=== PATIENT | female | born 1965 | race Two or more races ===

== ENCOUNTER 2021-09-15 01:48 | Emergency (ER) | payer MEDICAID, SELFPAY ==
[2021-09-15 02:00] VITALS: BP 114/84; PULSE 80; O2SAT 100
[2021-09-15 02:03] VITALS: BP 129/64; PULSE 98; RESP 24; TEMP 36.5; O2SAT 94; BMI 30.7
== END 2021-09-15 05:42 | disposition left against medical advice (07) ==
PROVIDERS: Emergency Provider Emergency Medicine
DX: R06.02 Shortness of breath (principal)
CPT/HCPCS: 99281

== ENCOUNTER 2023-04-21 10:07 | Outpatient (AMB) | payer MEDICAID, SELFPAY ==
[2023-04-21 10:23] VITALS: BP 135/75; PULSE 84; BMI 29.6
--- NOTE | 2023-04-21 10:23 | MHC.OFFVIS ---
Intake Vital Signs 04/21/23 10:23 Height 5 ft 2 in Weight 162 lb BMI 29.6 BP 135/75 Blood Pressure Location Rt brachial Position Sitting Pulse 84 Intake Visit Reasons: Umbilical hernia Intake Note: Patient referred by PCP Dr. Maurizio Aragon for umbilical hernia. Present since 3yrs. 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 Because of progression of symptoms, she presents here and wishes to have it repaired. She otherwise tolerates a diet, has regular bowel habits. No other GI issues or complaints. No prior abdominal surgeries. Chart was reviewed and patient evaluated [facility] Medical History Depression CKD (chronic kidney disease), stage III Atrophy of right kidney History of hepatitis C Ascending aorta dilation Aortic regurgitation History of latent tuberculosis Opioid use disorder Postmenopausal Nicotine dependence, cigarettes, uncomplicated Social History (Updated 04/21/23 @ 10:26 by SHONDA Chaudhary) Patient Tobacco Use Status: Current someday Tobacco user Cigarettes Per Day: 7 Physical Exam Vital Signs: Last Vital Signs Pulse 84 04/21/23 10:23 BP 135/75 04/21/23 10:23 BMI result Body Mass Index 29.6 Chest Other: Chest breath sounds bilaterally, HS 1 in 2 GI Other: Patient was examined both supine and standing with Valsalva. Moderately corpulent abdomen. Bilateral groin exam negative. Umbilicus exam negative. Patient has a proximally 2-3 cm incarcerated /irreducible supraumbilical ventral hernia. Abdomen otherwise benign Assessment & Plan Assessment & Plan (1) Incarcerated ventral hernia: Code(s): K43.6 - Other and unspecified ventral hernia with obstruction, without gangrene Plan Risks, benefits, alternatives of open repair of incarcerated supraumbilical ventral hernia with possible mesh reviewed with the patient and included but not limited to bleeding, infection, recurrence, numbness, pain, scarring, bowel injury and the patient wishes to proceed. All questions answered. Arrangements were made for this. Coding Level of Care Code New Pt Level 5 (78979) Diagnoses Incarcerated ventral hernia K43.6
== END 2023-04-21 10:38 | disposition home or self-care (01) ==
PROVIDERS: PCP Student in an Organized Health Care Education/Training Program; Referring Provider Student in an Organized Health Care Education/Training Program; Visit Provider Surgery
DX: K43.6 Other and unspecified ventral hernia with obstruction, without gangrene (principal)
CPT/HCPCS: 99204

== ENCOUNTER → 2023-04-21 10:07 | Outpatient (BNVA) | payer MEDICAID, SELFPAY | PROVIDERS: PCP Student in an Organized Health Care Education/Training Program; Referring Provider Student in an Organized Health Care Education/Training Program; Visit Provider Surgery | DX: K43.6 Other and unspecified ventral hernia with obstruction, without gangrene (principal) | CPT/HCPCS: 99202 ==

== ENCOUNTER 2023-05-22 05:57 | Day surgery (SDC) | payer MEDICAID, SELFPAY ==
[2023-05-20 13:35] VITALS: BMI 29.6
--- NOTE | 2023-05-21 14:38 | MHC.SHP ---
Pre-Procedural Eval Section A - 24 Hr Update-Section A only Date of Service: 05/21/23 The patient is an INPATIENT: No Changes since office visit: No Cold of Flu in the past 2 weeks, No New Medical Problems, No Changes in Medication and No Patient answered all questions Section B - Complete if H&P > 30 days Chief Complaint: Other and unspecified ventral hernia Allergies: Allergies Allergy/AdvReac Type Severity Reaction Status Date / Time No Known Allergies Allergy Unverified 04/21/23 10:26 Plan I have reviewed the history and physical and performed a pertinent physical examination on my patient. No changes have occurred unless specified. Time Spent With Patient Time: Total time managing care of this patient today ____ minutes.
[2023-05-22 06:10] VITALS: BMI 30.4
[2023-05-22 06:17] VITALS: BP 134/77; PULSE 75; RESP 16; TEMP 36.4; O2SAT 96
[2023-05-22 06:28] LABS: Hematocrit 37.3 % (37.0-47.0); Hemoglobin 12.4 g/dl (12.0-16.0); Mean Corpuscular HGB Conc 33.2 g/dl (31.0-35.0); Mean Corpuscular Volume 90.1 fL (80.0-98.0); Mean Platelet Volume 9.8 fL (9.4-12.3); Platelet Count 179 X10*3/uL (160-400); Red Blood Count 4.14 X10*6/uL (4.20-5.50); Red Cell Distribution Width 13.2 % (11.0-16.0); White Blood Count 7.4 X10*3/uL (4.8-10.8)
[2023-05-22] MEDS: Lactated Ringers 1,000 ML 100 ML IVCONT (06:34)
[2023-05-22 06:47] LABS: Anion Gap 10 (12-20); Blood Urea Nitrogen 18 mg/dL (9-16); Calcium 8.9 mg/dL (8.4-10.2); Carbon Dioxide 23 mmol/L (22-29); Chloride 109 mmol/L (96-108); Estimated Glomerular Filt Rate 54; Glucose Fasting 124 mg/dL (60-99); Potassium 4.1 mmol/L (3.3-5.1); Sodium 138 mmol/L (135-145)
--- NOTE | 2023-05-22 07:20 | HO.ANESPROP2 ---
Documented by User: Liv Sanchez NP 05/21/23 11:45 HPI - Anesthesia Eval Consult details Narrative: 57yo F for OPEN repair supraumbilical incarcerated ventral hernia with Possible mesh Routine PCP visit 03/2023. Stable. Referrals for routine specialist f/u. Pt denies any concerning cardiopulmonary symptoms. Suboxone 6mg daily - Hx OUD PMFSH Active Problems Active Problems: All Active Problems (Updated 09/11/22 @ 09:15 by Norma Tapia PA-C) Incarcerated ventral hernia (Acute) Nicotine dependence, cigarettes, uncomplicated (Acute) Past Medical History Medical History Asthma Depression CKD (chronic kidney disease), stage III Atrophy of right kidney History of hepatitis C Ascending aorta dilation Aortic regurgitation History of latent tuberculosis Opioid use disorder Postmenopausal Nicotine dependence, cigarettes, uncomplicated Surgical History Surgical History No pertinent past surgical history Social History Social History (Updated 04/21/23 @ 10:26 by SHONDA Chaudhary) Patient Tobacco Use Status: Current everyday Tobacco user Cigarettes Per Day: 10 Use of substances other than those prescribed or required for medical reasons: Yes Substance Use Frequency: Daily Are you DNR?: No Advance Directives: No Advance Directives Information Provided: Yes Meds Allergies Allergy/AdvReac Type Severity Reaction Status Date / Time No Known Allergies Allergy Verified 05/22/23 06:10 Home Medications Medication Instructions Recorded Confirmed Last Taken Type buprenorphine 2 mg-naloxone 0.5 mg 6 mg sublingual DAILY 04/21/23 05/22/23 05/22/23 05:30 History sublingual film (Suboxone) famotidine 20 mg tablet 20 mg PO BID 04/21/23 05/22/23 05/22/23 05:30 History quetiapine 300 mg tablet 300 mg PO BID 04/21/23 05/22/23 Unknown History venlafaxine 100 mg tablet 100 mg PO DAILY 04/21/23 05/22/23 Unknown History albuterol sulfate 90 mcg/actuation 2 puff inhalation Q6H PRN wheezing 05/20/23 05/22/23 05/22/23 05:30 History aerosol inhaler (Ventolin HFA) fluticasone propionate 230 2 puff inhalation BID 05/20/23 05/22/23 Unknown History mcg-salmeterol 21 mcg/actuation HFA inhaler (Advair HFA) Exam Height,Weight and Vital Signs: Height 5 ft 2 in Weight 73.482 kg Assessment and Plan Assessment Anesthesia Assessment: Chart Reviewed Documented by User: Juhi Escobar DO 05/22/23 07:27 [facility] Past Medical History Medical History Asthma Depression CKD (chronic kidney disease), stage III Atrophy of right kidney History of hepatitis C Ascending aorta dilation Aortic regurgitation History of latent tuberculosis Opioid use disorder Postmenopausal Nicotine dependence, cigarettes, uncomplicated Family History Family history of problems with anesthesia: No Surgical History Surgical History No pertinent past surgical history History of Problems with Anesthesia: No Social History Social History (Updated 04/21/23 @ 10:26 by SHONDA Chaudhary) Patient Tobacco Use Status: Current everyday Tobacco user Cigarettes Per Day: 10 Use of substances other than those prescribed or required for medical reasons: Yes Substance Use Frequency: Daily Are you DNR?: No Advance Directives: No Advance Directives Information Provided: Yes Meds Allergies Allergy/AdvReac Type Severity Reaction Status Date / Time No Known Allergies Allergy Verified 05/22/23 06:10 Home Medications Medication Instructions Recorded Confirmed Last Taken Type buprenorphine 2 mg-naloxone 0.5 mg 6 mg sublingual DAILY 04/21/23 05/22/23 05/22/23 05:30 History sublingual film (Suboxone) famotidine 20 mg tablet 20 mg PO BID 04/21/23 05/22/23 05/22/23 05:30 History quetiapine 300 mg tablet 300 mg PO BID 04/21/23 05/22/23 Unknown History venlafaxine 100 mg tablet 100 mg PO DAILY 04/21/23 05/22/23 Unknown History albuterol sulfate 90 mcg/actuation 2 puff inhalation Q6H PRN wheezing 05/20/23 05/22/23 05/22/23 05:30 History aerosol inhaler (Ventolin HFA) fluticasone propionate 230 2 puff inhalation BID 05/20/23 05/22/23 Unknown History mcg-salmeterol 21 mcg/actuation HFA inhaler (Advair HFA) Exam Exam Date and Time: May 22, 2023 0720 Height,Weight and Vital Signs: Height 5 ft 2 in Weight 73.482 kg Height 5 ft 2 in Weight 75.387 kg Airway Mallampati Class: II TM Dist: <=3cm Neck ROM: Full Loose/Missing/Broken Teeth: Yes (edentulous) Heart: S1S2 Lungs: CTAB Assessment and Plan Assessment Anesthesia Assessment: Anesthesia Plan Discussed and Chart Reviewed Final Anesthetic Review Family History of Problems with Anesthesia: No History of Problems with Anesthesia: No NPO: Yes ASA Class: III Final Preanesthetic Review: No Changes in Pt Med Stat, Meds/Allgs Chart Reviewed, Consent Obtained/Reviewed and Anes Risks/Benef Reviewed Patient Risk: Intermediate Procedure Risk: Low Anesthetic Plan Anesthetic Plan: MAC: and Agree w/ Assess. and Plan Disposition: Standard PACU
--- NOTE | 2023-05-22 08:01 | MHC.SHP ---
Pre-Procedural Eval Section A - 24 Hr Update-Section A only Date of Service: 05/22/23 The patient is an INPATIENT: No Changes since office visit: No Cold of Flu in the past 2 weeks, No New Medical Problems, No Changes in Medication and No Patient answered all questions The patient has been examined within 24 hours of the surgical procedure. The History & Physical has been completed within 30 days and I have reviewed it.: Yes Section B - Complete if H&P > 30 days Chief Complaint: Other and unspecified ventral hernia Details of Present Illness: See H&P Allergies: Allergies Allergy/AdvReac Type Severity Reaction Status Date / Time No Known Allergies Allergy Verified 05/22/23 06:10 Plan I have reviewed the history and physical and performed a pertinent physical examination on my patient. No changes have occurred unless specified. Time Spent With Patient Time: Total time managing care of this patient today ____ minutes.
[2023-05-22 08:09] VITALS: BP 91/53; PULSE 68; RESP 16; TEMP 36.5; O2SAT 99
[2023-05-22 08:24] VITALS: BP 94/59; PULSE 74; RESP 16; O2SAT 97
[2023-05-22 08:39] VITALS: BP 100/51; PULSE 82; RESP 16; TEMP 36.5; O2SAT 97
--- NOTE | 2023-05-22 08:56 | W.PM.OPN ---
Operative Note Operative Note Date of Service: 05/22/23 Narrative: Preoperative diagnosis: [] Supraumbilical incarcerated ventral hernia Postop diagnosis: [] Same Procedure [] open repair supraumbilical incarcerated ventral hernia with Bard mesh Surgeon: [] Nando Control Area Operator: [] Type of Anesthesia: [] MAC Indication for surgery: [] apProximally 2 cm supraumbilical incarcerated ventral hernia with omental contents Findings: [] Patient brought to the operating room, placed on operative table in supine position, after an adequate level of MAC anesthesia was induced, the patient's abdomen was prepped and draped in usual sterile fashion. Using a transverse incision over the hernia question just above the umbilicus, this carried down through skin, subcutaneous tissue, were large hernia sac was identified, and circumferentially dissected down to fascia. Sac was opened were incarcerated contents and sac were amputated using Bovie. Fascia margins were circumferentially cleared. A Bard mesh was placed in this defect and the superficial layer of the mesh was circumferentially sutured to the surrounding fascia using interrupted 0 Ethibond suture. At completion procedure, mesh was in good position with no gaps or tension. Wound was irrigated, secured hemostasis, and closed in the following manner subcutaneous tissue was reapproximated using interrupted 3-0 Vicryl sutures. Skin was closed using interrupted inverted dermal 3-0 Vicryl sutures followed by Steri-Strips and sterile dressings. Wounds were infiltrated at the beginning at the end with 0.5% Marcaine/1% lidocaine. Sponge, needle, and instrument counts reported correct. Patient tolerated the procedure well and emerged from anesthesia stable condition. EBL minimal
== END 2023-05-22 09:00 | disposition home or self-care (01) ==
PROVIDERS: Nurse Practitioner; PCP Student in an Organized Health Care Education/Training Program; Visit Provider Surgery
PROC: (CPT 49592; principal; 2023-05-22 07:30)
DX: K43.6 Other and unspecified ventral hernia with obstruction, without gangrene (principal); N18.30 Chronic kidney disease, stage 3 unspecified; N26.1 Atrophy of kidney (terminal); I77.819 Aortic ectasia, unspecified site; I35.1 Nonrheumatic aortic (valve) insufficiency; F11.90 Opioid use, unspecified, uncomplicated; Z86.19 Personal history of other infectious and parasitic diseases; Z86.15 Personal history of latent tuberculosis infection; Z79.899 Other long term (current) drug therapy; F17.210 Nicotine dependence, cigarettes, uncomplicated
CPT/HCPCS: 49592; 36415; 80048; 85027; 88302; C1781; J0690; J1885; J2250; J2371; J2405; J2704; J2795; J3010

== ENCOUNTER → 2023-05-22 05:57 | Outpatient (BNV) | payer MEDICAID, SELFPAY | PROVIDERS: PCP Student in an Organized Health Care Education/Training Program; Visit Provider Surgery | DX: K43.6 Other and unspecified ventral hernia with obstruction, without gangrene (principal) | CPT/HCPCS: 49592 ==

== ENCOUNTER 2023-06-23 09:56 | Outpatient (AMB) | payer MEDICAID, SELFPAY ==
--- NOTE | 2023-06-23 09:54 | MHC.OFFVIS ---
Intake Visit Reasons: S/P supraumbilical hernia w/poss mesh Intake Note: Patient here s/p supraumbilical incarcerated ventral hernia. Reports incisions healing well. Patient c/o: no longer taking rx pain meds. SX: 05-22-23. 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 She has tolerating a diet. Having regular bowel habits. It is increasing arterial level. She has no significant incisional discomfort. [facility] Medical History Asthma Depression CKD (chronic kidney disease), stage III Atrophy of right kidney History of hepatitis C Ascending aorta dilation Aortic regurgitation History of latent tuberculosis Opioid use disorder Postmenopausal Nicotine dependence, cigarettes, uncomplicated Surgical History Incarcerated ventral hernia (05/22/23) No pertinent past surgical history Social History Comment: counts correct Patient Tobacco Use Status: Current everyday Tobacco user Cigarettes Per Day: 10 Physical Exam GI Other: Abdomen is soft. Wound clean dry and intact healing well Assessment & Plan Assessment & Plan (1) Postop check: Code(s): Z09 - Encounter for follow-up examination after completed treatment for conditions other than malignant neoplasm Category: Surgical Plan Patient has been given local instructions, and will follow-up p.r.n.. All questions answered. Coding Level of Care Code Global (75161) Diagnoses Postop check Z09
== END 2023-06-23 10:02 | disposition home or self-care (01) ==
LOC: HO.HGS 09:56
PROVIDERS: PCP Student in an Organized Health Care Education/Training Program; Visit Provider Surgery
DX: Z09 Encounter for follow-up examination after completed treatment for conditions other than malignant neoplasm (principal); K42.9 Umbilical hernia without obstruction or gangrene
CPT/HCPCS: 99212

== ENCOUNTER → 2023-06-23 09:56 | Outpatient (BNVA) | payer MEDICAID, SELFPAY | PROVIDERS: PCP Student in an Organized Health Care Education/Training Program; Visit Provider Surgery | DX: Z09 Encounter for follow-up examination after completed treatment for conditions other than malignant neoplasm (principal); Z98.890 Other specified postprocedural states | CPT/HCPCS: 99212 ==

== ENCOUNTER 2023-07-29 11:06 | Outpatient (AMB) | payer MEDICAID, SELFPAY ==
--- NOTE | 2023-07-29 11:11 | HO.NEPHOV_ITS ---
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 She is known to have right renal atrophy. She has history of hepatitis-C which has been treated. She does not have any flank pain, hematuria, pedal edema. Her blood pressure has been at goal. She does not take any nonsteroidal anti- inflammatories. She denies any chest pain, shortness of breath, paroxysmal nocturnal dyspnea, orthopnea, orthostatic symptoms or any other new systemic complaints. She feels well. [facility] Medical History (Updated 07/29/23 @ 12:36 by Vidal Watson MD) Asthma Depression CKD (chronic kidney disease), stage III Atrophy of right kidney History of hepatitis C Ascending aorta dilation Aortic regurgitation History of latent tuberculosis Opioid use disorder Postmenopausal Nicotine dependence, cigarettes, uncomplicated Surgical History Incarcerated ventral hernia (05/22/23) No pertinent past surgical history Social History Comment: counts correct Patient Tobacco Use Status: Current everyday Tobacco user Cigarettes Per Day: 10 Physical Exam Vital Signs: Last Vital Signs Pulse 80 07/29/23 11:12 BP 110/70 07/29/23 11:12 Pulse Ox 97 07/29/23 11:12 Oxygen Delivery Method Room Air 07/29/23 11:12 BMI result Body Mass Index 28.3 Const General: comfortable and no acute distress Orientation/consciousness: patient oriented x3 HEENT Head: Yes normocephalic Mouth: Normal oral and palatal mucosa present Eyes EOM: EOMs intact bilaterally Neck Neck: Yes supple Resp Auscultation: clear to auscultation bilaterally Cardio Jugular venous distension: no JVD Rate: regular rate GI Palpation (GI): Soft to palpation Auscultation: normal bowel sounds General: Yes no CVA tenderness Back/Spine/Pelvis Back: no CVA tenderness Skin General skin exam: no rashes or lesions noted Neuro General: patient oriented x3 and moves all extremities Extrem General: Yes no pedal edema Results Reviewed Nephrology Results: Hgb 12.4 g/dl (12.0-16.0) 05/22/23 WBC 7.4 X10*3/uL (4.8-10.8) 05/22/23 Plt Count 179 X10*3/uL (160-400) 05/22/23 Sodium 138 mmol/L (135-145) 05/22/23 Potassium 4.1 mmol/L (3.3-5.1) 05/22/23 Chloride 109 mmol/L (96-108) H 05/22/23 Carbon Dioxide 23 mmol/L (22-29) 05/22/23 BUN 18 mg/dL (9-16) H 05/22/23 Creatinine 1.04 mg/dL (0.5-1.4) 05/22/23 Calcium 8.9 mg/dL (8.4-10.2) 05/22/23 Assessment & Plan Assessment & Plan (1) CKD (chronic kidney disease), stage II: Code(s): N18.2 - Chronic kidney disease, stage 2 (mild) Category: Medical (2) Atrophy of right kidney: Code(s): N26.1 - Atrophy of kidney (terminal) Category: Medical (3) Vitamin D deficiency: Code(s): E55.9 - Vitamin D deficiency, unspecified Category: Medical Plan Sandra has right atrophic kidney most likely due to renal dysplasia. Her blood pressure has been at goal. Her serum creatinine is stable. She has not known to have any proteinuria. She has had treatment for hepatitis-C. I started her on vitamin-D. She maintains good hydration and avoids nonsteroidal anti- inflammatories. I plan to do isotope renal scan at the next visit to ascertain whether there is any function on the right kidney. She needs a follow-up renal ultrasound which I ordered today. Follow-up lab work ordered. Answered all questions .Follow-up appointment given Orders: Orders Creatinine Today N18.2 - Chronic kidney disease, stage 2 (mild) Blood Urea Nitrogen Today N18.2 - Chronic kidney disease, stage 2 (mild) Calcium Today N18.2 - Chronic kidney disease, stage 2 (mild) Vitamin D 25-OH Total Today N18.2 - Chronic kidney disease, stage 2 (mild) US renal BI Today N18.2 - Chronic kidney disease, stage 2 (mild) Electrolytes Today N18.2 - Chronic kidney disease, stage 2 (mild) Protein Creatinine Ratio, Ur Today N18.2 - Chronic kidney disease, stage 2 (mild) Medications: New cholecalciferol (vitamin D3) 50 mcg PO DAILY 30 caps 6RF 30 days Coding Level of Care Code Est Pt Level 4 (90040) Diagnoses CKD (chronic kidney disease), stage II N18.2 Atrophy of right kidney N26.1 Vitamin D deficiency E55.9
[2023-07-29 11:12] VITALS: BP 110/70; PULSE 80; O2SAT 97; BMI 28.3
== END 2023-07-29 11:34 | disposition home or self-care (01) ==
PROVIDERS: PCP Student in an Organized Health Care Education/Training Program; Referring Provider Student in an Organized Health Care Education/Training Program; Visit Provider Internal Medicine Nephrology
DX: N18.2 Chronic kidney disease, stage 2 (mild) (principal); N26.1 Atrophy of kidney (terminal); E55.9 Vitamin D deficiency, unspecified
CPT/HCPCS: 99214

== ENCOUNTER → 2023-07-29 11:06 | Outpatient (BNVA) | payer MEDICAID, SELFPAY | PROVIDERS: PCP Student in an Organized Health Care Education/Training Program; Visit Provider Internal Medicine Nephrology | DX: N26.1 Atrophy of kidney (terminal) (principal); N18.30 Chronic kidney disease, stage 3 unspecified; Q60.0 Renal agenesis, unilateral; E55.9 Vitamin D deficiency, unspecified | CPT/HCPCS: 99212 ==

== ENCOUNTER 2023-08-18 09:50 | Outpatient (REF) | payer MEDICAID, SELFPAY ==
--- NOTE | ~2023-08-18 | US_ITS ---
EXAMINATION: US RETROPERITONEAL LIMITED (RENAL ONLY) CLINICAL INFORMATION: CKD stage 2. COMPARISON: CT abdomen and pelvis 02/14/2019. TECHNIQUE: Real-time imaging of the kidneys. FINDINGS: RIGHT KIDNEY: 6.8 x 3.7 x 3.3 cm (SAG x AP x TRV). The kidney is small and atrophic with cortical thinning and increased echogenicity. No calculi or focal parenchymal lesions. No calculi. No hydronephrosis. LEFT KIDNEY: 9.1 x 4.4 x 5.4 cm (SAG x AP x TRV). The kidney is normal in size, contour, and echogenicity. Renal cortical thickness is normal. No calculi or hydronephrosis. A benign 0.9 cm Bosniak class I upper pole renal cyst is noted which requires no additional imaging or followup. No solid renal masses are seen. US/US renal BI IMPRESSION: 1. Atrophic right kidney. 2. Normal-appearing left kidney.
--- NOTE | 2023-08-18 10:26 | CA_ITS ---
Transthoracic Echocardiogram Patient (Last, First, Middle): Sandra Moscoso, Gender: Female Date of : 1965 Age: 58 Procedure Date: 08/18/2023 Procedure Type: Transthoracic Echocardiogram Location: OP Height: 160.02 cm Weight: 74.84 kg BSA: 1.78 m2 Heart Rate: 63 bpm BP: 100 / 60 mmHg Mobile Home Technician: GÓMEZ Zapata MD: Felicita Aragon MD Poultry Boner: Chato Bowles MD Symptoms: I35.1 AV INSUFF MILD TO MOD AORTIC REGURG Study Quality: Adequate ECG Rhythm: Sinus Conclusions: - 1. Mildly dilated left ventricle with low normal LV ejection fraction of 50-55% 2. Mild aortic regurgitation 3. Normal RV systolic pressure 4. Mildly dilated ascending aorta at 3.8 cm 5. No pericardial effusion Findings Left Ventricle Mildly increased left ventricular cavity size. There is normal left ventricular wall thickness. The left ventricular systolic function is low normal. The visually estimated ejection fraction is between 50-55%. Spectral Doppler is indicative of a normal filling pattern. Right Ventricle Normal right ventricular cavity size and systolic function. Atria The left atrium is likely dilated. There is no evidence of interatrial shunt. The right atrium is normal in size. Aortic Valve There is mild calcification of the aortic valve. There is mild thickening of the aortic valve. There is no aortic valve stenosis. There is mild aortic valve regurgitation. Mitral Valve Normal mitral valve structure and function. There is trace mitral valve regurgitation. There is no mitral valve stenosis. Pulmonic Valve The pulmonic valve is likely normal. Tricuspid Valve Normal tricuspid valve structure. There is trace tricuspid valve regurgitation. The right ventricular systolic pressure is normal. The right ventricular systolic pressure is 17 mmHg. Normal right atrial pressure. There is no evidence of pulmonary hypertension. Great Vessels The pulmonary artery was not well visualized. There is mild dilatation of the ascending aorta measuring 3.80 cm. Venous The inferior vena cava is normal in size and collapses greater than 50% with inspiration. Pericardium/Pleural There is no evidence of pericardial effusion. Prior Study Comparison No significant change compared to prior study dated: 12/07/2018. Measurements 2D Linear Measurements IVSd: 0.91 0.6-0.9/0.6-1.0 cm LVIDd: 5.83 3.9-5.3/4.2-5.9 cm LVIDd Index: 3.28 2.4-3.2/2.2-3.1 cm/m2 LVIDs: 3.86 2.0-3.6 cm LVPWd: 0.89 0.7-1.1 cm LA Diam: 3.30 2.7-3.8/3.0-4.0 cm LAIDs Index: 1.85 1.5-2.3 cm/m2 LV Mass: 256.24 67-162/88-224 g LV Mass Index: 143.96 43-95/49-115 g/m2 LVOT Diam: 2.10 3.0+(-)1.3 cm 2D Systolic Function EF 4C: 54.10 >55% EF 2C: 56.90 >55% EF BiP: 53.70 >55% Mitral Valve MV Pk E: 0.82 MV PK A: 0.71 MV Decel Time: 224.00 E/A: 1.20 E'Lateral: 10.20 E'Medial: 6.74 E/E' Med: 12.10 E/E' Lat: 8.00 PHT: 66.00 MVA PHT: 3.33 Decel Walsh: 3.65 Aortic Valve AoV Pk Rick: 1.48 AoV Mn Rick: 1.16 AoV VTI: 0.37 AoV Pk Grad: 9.00 Aov Mn Grad: 6.00 LUCIO Cont.VTI: 2.89 AI Pk Rick: 3.83 AI Walsh: 1.73 LVOT LVOT Pk Rick: 1.24 LVOT Mn Rick: 0.88 LVOT VTI: 0.31 LVOT Pk Grad: 6.00 LVOT Mn Grad: 4.00 LVOT Diam: 2.10 LVOT Area: 3.46 Diastolic Function MV Pk E: 0.82 MV Pk A: 0.71 E/A: 1.20 E'Medial: 6.74 E/E' Med: 12.10 E' Laterial: 10.20 E/E' Lat: 8.00 Right Ventricle TAPSE (mm): 21.20 TVS' Rick: 10.20 Tricuspid Valve TR Pk Rick: 1.88 TR Pk Grad: 14.00 RA Press: 3.00 RVSP: 17.00 Great Vessels Aorta Sinus of Valsalva: 3.30 2.0-3.5 cm Ao Asc: 3.80 2.1-3.4 cm Ao Arch: 2.60 Pulmonary Valve PV Pk Rick: 0.88 Peak PV Grad: 3.00 Updated in Other Vendor System with Status of Final Chato Bowles MD electronically signed on 08/18/2023 4:31:40 PM with status of Final
== END 2023-08-18 09:51 | disposition home or self-care (01) ==
LOC: HO.US 09:50
PROVIDERS: PCP Student in an Organized Health Care Education/Training Program; Visit Provider Student in an Organized Health Care Education/Training Program
DX: N18.2 Chronic kidney disease, stage 2 (mild) (principal); I35.1 Nonrheumatic aortic (valve) insufficiency
CPT/HCPCS: 76775; 93306

== ENCOUNTER → 2023-08-18 10:26 | Outpatient (BNV) | payer MEDICAID, SELFPAY | PROVIDERS: PCP Student in an Organized Health Care Education/Training Program; Visit Provider Internal Medicine Cardiovascular Disease | DX: I35.1 Nonrheumatic aortic (valve) insufficiency (principal) | CPT/HCPCS: 93306 ==

== ENCOUNTER 2024-01-29 10:07 | Outpatient (AMB) | payer MEDICAID, SELFPAY ==
--- NOTE | 2024-01-29 10:16 | HO.NEPHOV ---
Vital Signs 01/29/24 10:17 Height 5 ft 3 in Weight 146 lb 4 oz BMI 25.9 BP 100/70 Blood Pressure Location Lt brachial Position Sitting Pulse 78 Pulse Source Pulse Oximeter Pulse Oximetry (%) 97 Oxygen Delivery Method Room Air Intake Visit Reasons: CKD/ r/s from 01/27/24 General Expeditor Required: No Accompanied by: Self / Same As Patient Allergies No Known Allergies Allergy (Verified 01/29/24 10:17) HPI Comments Details: Sandra was seen in the office in follow-up of her solitary functioning kidney. She is known to have right renal atrophy. She has history of hepatitis-C which has been treated. She does not have any flank pain, hematuria, pedal edema. Her blood pressure has been at goal. She does not take any nonsteroidal anti-inflammatories. She denies any chest pain, shortness of breath, paroxysmal nocturnal dyspnea, orthopnea, orthostatic symptoms or any other new systemic complaints. She feels well. [facility] Medical History (Updated 07/29/23 @ 12:36 by Vidal Watson MD) Asthma Depression CKD (chronic kidney disease), stage III Atrophy of right kidney History of hepatitis C Ascending aorta dilation Aortic regurgitation History of latent tuberculosis Opioid use disorder Postmenopausal Nicotine dependence, cigarettes, uncomplicated Surgical History Incarcerated ventral hernia (05/22/23) No pertinent past surgical history Social History Comment: counts correct Patient Tobacco Use Status: Current everyday Tobacco user Cigarettes Per Day: 10 Review of Systems Const All systems reviewed & are unremarkable except as noted in HPI and below Physical Exam Vital Signs: Last Vital Signs Pulse 78 01/29/24 10:17 BP 100/70 01/29/24 10:17 Pulse Ox 97 01/29/24 10:17 Oxygen Delivery Method Room Air 01/29/24 10:17 BMI result Body Mass Index 25.9 Const General: comfortable and no acute distress Orientation/consciousness: patient oriented x3 HEENT Head: Yes normocephalic Mouth: Normal oral and palatal mucosa present Eyes EOM: EOMs intact bilaterally Neck Neck: Yes supple Resp Auscultation: clear to auscultation bilaterally Cardio Jugular venous distension: no JVD Rate: regular rate GI Palpation (GI): Soft to palpation Auscultation: normal bowel sounds General: Yes no CVA tenderness Back/Spine/Pelvis Back: no CVA tenderness Skin General skin exam: no rashes or lesions noted Neuro General: patient oriented x3 and moves all extremities Extrem General: Yes no pedal edema Results Reviewed Nephrology Results: Renal US 08/18/23 Assessment & Plan Assessment & Plan (1) Atrophy of right kidney: Code(s): N26.1 - Atrophy of kidney (terminal) Category: Medical (2) CKD (chronic kidney disease), stage II: Code(s): N18.2 - Chronic kidney disease, stage 2 (mild) Category: Medical (3) Vitamin D deficiency: Code(s): E55.9 - Vitamin D deficiency, unspecified Category: Medical Plan Sandra has right atrophic kidney most likely due to renal dysplasia. Her blood pressure has been at goal. Her serum creatinine has been stable. She has not known to have any proteinuria. She has had treatment for hepatitis-C. She is on vitamin-D. She maintains good hydration and avoids nonsteroidal anti-inflammatories. I plan to do isotope renal scan at the next visit to ascertain whether there is any function on the right kidney. Follow-up lab work ordered. Answered all questions Coding Level of Care Code Est Pt Level 4 (18098) Diagnoses Atrophy of right kidney N26.1 CKD (chronic kidney disease), stage II N18.2 Vitamin D deficiency E55.9
[2024-01-29 10:17] VITALS: BP 100/70; PULSE 78; O2SAT 97; BMI 25.9
== END 2024-01-29 10:29 | disposition home or self-care (01) ==
PROVIDERS: PCP Student in an Organized Health Care Education/Training Program; Visit Provider Internal Medicine Nephrology
DX: N26.1 Atrophy of kidney (terminal) (principal); N18.2 Chronic kidney disease, stage 2 (mild); E55.9 Vitamin D deficiency, unspecified
CPT/HCPCS: 99214

== ENCOUNTER → 2024-01-29 10:07 | Outpatient (BNVA) | payer MEDICAID, SELFPAY | PROVIDERS: PCP Student in an Organized Health Care Education/Training Program; Visit Provider Internal Medicine Nephrology | DX: N26.1 Atrophy of kidney (terminal) (principal); N18.2 Chronic kidney disease, stage 2 (mild); E55.9 Vitamin D deficiency, unspecified | CPT/HCPCS: 99212 ==